=== PATIENT | female | born 1970 | race Two or more races ===

== ENCOUNTER 2017-02-09 15:02 | Outpatient (CLI) | payer SELFPAY | END 2017-02-09 15:03 | disposition home or self-care (01) | DX: E11.9 Type 2 diabetes mellitus without complications (principal) ==

== ENCOUNTER 2017-09-16 09:40 | Outpatient (CLI) | payer SELFPAY ==
--- NOTE | 2017-09-16 12:19 | Ultrasound Report ---
PELVIC ULTRASOUND: 09/16/2017 COMPARISON: None. INDICATION: Ovarian cyst. TECHNIQUE: Sonographic evaluation of the pelvis with transabdominal and endovaginal technique. FINDINGS: There is a uterine calcification. Nabothian cysts are noted. The uterus appears otherwise unremarkable. The endometrial stripe measures 13 mm. The ovaries appear unremarkable with normal vascular evaluation. IMPRESSION: ENDOMETRIAL STRIPE 13 MM. CORRELATE WITH PREMENOPAUSAL OR POSTMENOPAUSAL STATUS. JOB #: [id number] EXT JOB #: [id number] [facility]
== END 2017-09-16 09:41 | disposition home or self-care (01) ==
LOC: DI 09:40
PROVIDERS: ATTEND Obstetrics & Gynecology
DX: N83.209 Unspecified ovarian cyst, unspecified side (principal)
CPT/HCPCS: 76830; 76856